=== PATIENT | male | born 1960 | race Caucasian/White ===

== ENCOUNTER 2016-08-10 14:02 | Emergency (ER) | payer OTHER ==
[~2016-08-10] VITALS: Ht 177.8 cm; Wt 70.0 kg
--- NOTE | 2016-08-10 14:13 | PD ---
HPI Chief Complaint: foot injury; hyponatremia Time Seen by Provider: 14:13 Travel History International Travel<30 days: No Contact w/Intl Traveler<30days: No History of Present Illness HPI 56 year old male presents to the emergency department for evaluation of hyponatremia and right foot injury. 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 He states he has not used in 14 days. Patient was sent to the emergency department for hyponatremia of 128 that was drawn yesterday. According to [facility], the patient was climbing on tables and climbing the duran. They put him in seclusion and then noticed his right foot this morning. Prior to him climbing on the tables, he had no right foot injury. The patient is cooperative at this time. He is alert and oriented to person, place, time, situation at this time. He does report some mild left ankle pain as well. [facility] Social History Alcohol Use: Yes (currently in detox) Tobacco Use: No Substance Use: Yes (currently in detox) Allergies-Medications (Allergen,Severity, Reaction): Coded Allergies: No Known Allergies (Unverified , 08/10/16) Reported Meds & Prescriptions Reported Meds & Active Scripts Active Reported Thiamine (Thiamine HCl) 100 Mg Tab 100 Mg PO DAILY Olanzapine 10 Mg Tab 10 Mg PO HS Review of Systems Except as stated in HPI: all other systems reviewed are Neg Physical Exam Narrative GENERAL: Well-developed well-nourished male patient, ambulatory. Afebrile. SKIN: Warm and dry. There is ecchymosis and erythema to the right dorsal foot. No warmth, no evidence of cellulitis. Small ecchymosis is noted to left lateral ankle. HEAD: Normocephalic. Atraumatic. EYES: No scleral icterus. No injection or drainage. NECK: Supple, trachea midline. No JVD or lymphadenopathy. CARDIOVASCULAR: Regular rate and rhythm without murmurs, gallops, or rubs. RESPIRATORY: Breath sounds equal bilaterally. No accessory muscle use. Lungs sounds clear to auscultation. GASTROINTESTINAL: Abdomen soft, non-tender, nondistended. MUSCULOSKELETAL: No cyanosis, or edema. Patient has tenderness over right dorsal foot, left lateral ankle. Negative Rockwell's test. BACK: Nontender without obvious deformity. No CVA tenderness. Data Data Last Documented VS Vital Signs Date Time Temp Pulse Resp B/P Pulse Ox O2 Delivery O2 Flow Rate FiO2 08/10/16 14:20 99 Room Air 08/10/16 14:17 98.7 99 18 155/86 Orders Complete Blood Count With Diff (08/10/16 14:12) Basic Metabolic Panel (Bmp) (08/10/16 14:12) Foot, Complete ([id number]) (08/10/16 ) Ankle, Complete ([id number]) (08/10/16 ) Ankle, Complete ([id number]) (08/10/16 ) Sodium Chlor 0.9% 1000 Ml Inj (Ns 1000 M (08/10/16 14:15) Potassium Chloride (Kcl) (08/10/16 17:00) Labs Laboratory Tests Test 08/10/16 15:45 White Blood Count 12.6 TH/MM3 Red Blood Count 4.21 MIL/MM3 Hemoglobin 14.1 GM/DL Hematocrit 39.1 % Mean Corpuscular Volume 92.8 FL Mean Corpuscular Hemoglobin 33.4 PG Mean Corpuscular Hemoglobin 36.0 % Concent Red Cell Distribution Width 12.1 % Platelet Count 245 TH/MM3 Mean Platelet Volume 9.4 FL Neutrophils (%) (Auto) 67.9 % Lymphocytes (%) (Auto) 14.6 % Monocytes (%) (Auto) 16.6 % Eosinophils (%) (Auto) 0.5 % Basophils (%) (Auto) 0.4 % Neutrophils # (Auto) 8.6 TH/MM3 Lymphocytes # (Auto) 1.8 TH/MM3 Monocytes # (Auto) 2.1 TH/MM3 Eosinophils # (Auto) 0.1 TH/MM3 Basophils # (Auto) 0.0 TH/MM3 CBC Comment DIFF FINAL Differential Comment Sodium Level 129 MEQ/L Potassium Level 3.2 MEQ/L Chloride Level 93 MEQ/L Carbon Dioxide Level 27.6 MEQ/L Anion Gap 8 MEQ/L Blood Urea Nitrogen 11 MG/DL Creatinine 0.69 MG/DL Estimat Glomerular Filtration 119 ML/MIN Rate Random Glucose 104 MG/DL Calcium Level 8.9 MG/DL MDM Medical Decision Making Medical Screen Exam Complete: Yes Emergency Medical Condition: Yes Medical Record Reviewed: Yes Interpretation(s) x-ray right foot CONCLUSION: Unremarkable examination of the right foot. Bipartite sesamoid underneath the fifth metatarsal head x-ray right ankle CONCLUSION: Unremarkable examination of the right ankle. x-ray left ankle - CONCLUSION: Unremarkable examination of the left ankle. Differential Diagnosis Hyponatremia versus electrolyte abnormality versus fracture versus contusion versus sprain Narrative Course 56-year-old male presents to the emergency department for evaluation of hyponatremia of 128, right foot injury. CBC, BMP are ordered and pending. Patient is given normal saline 1 L IV bolus. X-ray of the right foot, right ankle, left ankle are ordered and pending. CBC shows slight leukocytosis at 12.6, most likely stress reaction. BMP shows hyponatremia 129, potassium 3.2. X-ray right foot is unremarkable. X-ray right ankle is unremarkable. X-ray left ankle is unremarkable. Patient is given potassium 40 meq by mouth. I discussed the case including laboratory results and physical exam findings with my attending physician, Dr. Johnson, who presents complaining disposition. Patient is instructed to follow up on lab work with Jasper Gillespie to recheck sodium level. Patient is stable for discharge. He verbalizes agreement and understanding. The patient was discharged in stable condition with instructions, including return instructions and follow up instructions. Diagnosis Primary Impression: Contusion of right foot Qualified Code: S90.31XA - Contusion of right foot, initial encounter Additional Impression: Hyponatremia Referrals: Primary Care Physician call for appointment Patient Instructions: Contusion in Adults (ED), General Instructions, Hyponatremia (ED) Additional Instructions: Ice right foot for 20 minutes 4-5 times daily. Take ibuprofen as instructed as needed with food for pain. Follow-up with your primary care physician. Return to the emergency department for any acute worsening of symptoms. Med/Other Pt SpecificInfo: Prescription(s) given, No Change to Meds Scripts Ibuprofen 600 Mg [id number] Mg PO TID PRN (PAIN SCALE 1 TO 10) #21 TAB Ref 0 Prov:Milka Johnson 08/10/16 Disposition: 01 DISCHARGE HOME Condition: Stable Milka Johnson Aug 10, 2016 14:13
[2016-08-10] MEDS ORDERED: SODIUM CHLOR 0.9% 1000 ML INJ 1,000 ML IV ONE (14:15)
[2016-08-10 14:17] VITALS: BP 155/86; PULSE 99; RESP 18; TEMP 98.7; O2SAT 99
--- NOTE | 2016-08-10 15:05 | RADRPT ---
EXAM DATE/TIME: 08/10/2016 14:51 [facility] COMPARISON: No previous studies available for comparison. INDICATIONS : Fell today, pain in both ankles and right foot, medial side of right foot and great toe is swollen an d bruised, pain 360degrees around right ankle MEDICAL HISTORY : None. SURGICAL HISTORY : None. ENCOUNTER: Initial ACUITY: 1 day PAIN SCORE: 10/10 LOCATION: Right ankle FINDINGS: Three view exam was performed of the right ankle. The bony structures are in normal alignment. No e vidence of fracture, dislocation, or soft tissue swelling. The ankle mortise is intact. No radiopaq ue foreign bodies are seen. Bony mineralization is normal. CONCLUSION: Unremarkable examination of the right ankle. Julio Clemens MD on August 10, 2016 at 15:03 Board Certified Radiologist. This report was verified electronically.
--- NOTE | 2016-08-10 15:05 | RADRPT ---
EXAM DATE/TIME: 08/10/2016 14:53 [facility] COMPARISON: No previous studies available for comparison. INDICATIONS : Fell today, pain mostly on medial side of right foot and great toe, foot is swollen and bruised MEDICAL HISTORY : None. SURGICAL HISTORY : None. ENCOUNTER: Initial ACUITY: 1 day PAIN SCORE: 10/10 LOCATION: Right foot FINDINGS: Three view examination of the right foot demonstrates no soft tissue swelling, dislocation, or fractu re. The tarsal bones appear intact. The interphalangeal and metatarsophalangeal joints are intact. The calcaneus is intact. Bony mineralization is normal. CONCLUSION: Unremarkable examination of the right foot. Bipartite sesamoid underneath the fifth metatarsal head Julio Clemens MD on August 10, 2016 at 15:03 Board Certified Radiologist. This report was verified electronically.
--- NOTE | 2016-08-10 15:06 | RADRPT ---
EXAM DATE/TIME: 08/10/2016 14:56 [facility] COMPARISON: No previous studies available for comparison. INDICATIONS : Fell today, pain along lateral side of left ankle MEDICAL HISTORY : None. SURGICAL HISTORY : None. ENCOUNTER: Initial ACUITY: 1 day PAIN SCORE: 8/10 LOCATION: Left ankle FINDINGS: Three view exam was performed of the left ankle. The bony structures are in normal alignment. No ev idence of fracture, dislocation, or soft tissue swelling. The ankle mortise is intact. No radiopaqu e foreign bodies are seen. Bony mineralization is normal. CONCLUSION: Unremarkable examination of the left ankle. Julio Clemens MD on August 10, 2016 at 15:05 Board Certified Radiologist. This report was verified electronically.
[2016-08-10] MEDS ORDERED: OLAN10TA PO (15:25)
[2016-08-10] MEDS ORDERED: THIA100T PO (15:25)
[2016-08-10 16:27] LABS: AUTOMATED NEUTROPHIL # 8.6 TH/MM3 (1.8-7.7); BASOPHIL % 0.4 % (0.0-2.0); EOSINOPHIL # 0.1 TH/MM3 (0-0.4); EOSINOPHIL % 0.5 % (0.0-4.0); HEMATOCRIT 39.1 % (39.0-51.0); LYMPH % 14.6 % (9.0-44.0); LYMPHOCYTE # 1.8 TH/MM3 (1.0-4.8); MEAN CELL VOLUME 92.8 FL (80.0-100.0); MEAN CORPUSCULAR HEMOGLOBIN 33.4 PG (27.0-34.0); MONO % 16.6 % (0.0-8.0); NEUT % 67.9 % (16.0-70.0); PLATELET COUNT 245 TH/MM3 (150-450); RED BLOOD COUNT 4.21 MIL/MM3 (4.50-5.90); RED CELL DISTRIBUTION WIDTH 12.1 % (11.6-17.2); WHITE BLOOD COUNT 12.6 TH/MM3 (4.0-11.0)
[2016-08-10 16:28] LABS: HEMO FLAGS DIFF FINAL
[2016-08-10 16:48] LABS: BICARBONATE 27.6 MEQ/L (21.0-32.0); POTASSIUM 3.2 MEQ/L (3.5-5.1)
[2016-08-10] MEDS ORDERED: IBUP-232 PO (16:57)
[2016-08-10] MEDS ORDERED: POTASSIUM CHLORIDE 20 MEQ CONTROLLED RELEASE TAB PO ONE (17:00)
[2016-08-10 17:26] VITALS: BP 161/84
== END 2016-08-10 17:28 | disposition home or self-care (01) ==
LOC: NEPA 14:02
DX: S90.31XA Contusion of right foot, initial encounter (principal); E87.1 Hypo-osmolality and hyponatremia; M25.572 Pain in left ankle and joints of left foot; X58.XXXA Exposure to other specified factors, initial encounter
CPT/HCPCS: 73610; 73630; 80048; 85025; 96360; 99284; J7030